=== PATIENT | female | born 1965 | race Asian ===

== ENCOUNTER 2016-12-20 15:54 | Outpatient (CLI) | payer OTHER ==
--- NOTE | 2016-12-20 16:41 | DIAGNOSTIC IMAGING REPORT ---
PROCEDURE: MG BILATERAL SCREENING W/CAD INDICATION: Screening. Family history breast carcinoma (aunt). TECHNIQUE: Bilateral CC and MLO digital views. COMPARISON: Compared to 12/08/2015, 12/27/2013, and 11/15/2012. FINDINGS: Computer-aided detection applied. Dense parenchymal pattern with a few dystrophic and micro calcifications. Findings suggest development of a 12 mm ovoid nodular density in the central left breast which is only seen on the MLO view (middle third). IMPRESSION: 1. Findings suggest development of a 12 mm nodular density in the central left breast. While this may represent normal tissue or a cyst, underlying solid mass should also be considered. Further mammographic views (true lateral view, CC and MLO spot compression views are recommended. In addition, left breast ultrasound is recommended. RESULT CODE: 0- Incomplete; needs additional evaluation. A. A negative report should not delay biopsy if a dominant or clinically suspicious mass is present. 10-15% of cancers are not identified by x-ray. B. A negative report may reinforce clinical impression. C. Adenosis and dense breasts may obscure an underlying neoplasm. D. False positive reports average 6-10%. E.. A yearly screening mammogram is recommended. A reminder letter will be scheduled.
== END 2016-12-20 23:00 ==
LOC: MAM SRH 15:54
DX: Z12.31 Encounter for screening mammogram for malignant neoplasm of breast (principal); Z80.3 Family history of malignant neoplasm of breast